=== PATIENT | male | born 1960 | race Caucasian/White ===

== ENCOUNTER 2019-11-09 08:31 | Day surgery (SDC) | payer OTHER ==
[~2019-11-09] VITALS: Ht 160 cm; Wt 83.0 kg
[2019-11-09] MEDS ORDERED: MIDAZOLAM 2 MG/2 ML VIAL ONE (10:29)
[2019-11-09] MEDS ORDERED: LIDOCAINE 2% 100 MG/5 ML UJET TP ONE ×2 (10:29→11:05)
[2019-11-09] MEDS ORDERED: fentaNYL 0.05 MG/ML VIAL ONE (10:29)
[2019-11-09] MEDS ORDERED: fentaNYL 0.05 MG/ML VIAL IVP ONE (10:52)
[2019-11-09] MEDS ORDERED: MIDAZOLAM 2 MG/2 ML VIAL IVP ONE (10:54)
[2019-11-09] MEDS ORDERED: LIDOCAINE JELLY 2% 30 ML TUBE TP ONE (11:05)
== END 2019-11-09 11:50 | disposition home or self-care (01) ==
LOC: MDS 08:31 → MMU 08:31 → MDS 11:50
PROVIDERS: ATTEND Internal Medicine Gastroenterology
DX: Z12.11 Encounter for screening for malignant neoplasm of colon (principal); D12.3 Benign neoplasm of transverse colon; D12.1 Benign neoplasm of appendix; K30 Functional dyspepsia; K22.8 Other specified diseases of esophagus; K26.9 Duodenal ulcer, unspecified as acute or chronic, without hemorrhage or perforation; K31.89 Other diseases of stomach and duodenum; K21.0 Gastro-esophageal reflux disease with esophagitis; Z80.9 Family history of malignant neoplasm, unspecified
CPT/HCPCS: 36415; 43239; 45385; 86677; J2250; J3010